=== PATIENT | female | born 1955 | race Caucasian/White ===

== ENCOUNTER 2017-04-04 07:28 | Emergency (ER) | payer BC ==
[2017-04-04] MEDS ORDERED: ONDANSETRON PF 4 MG/2 ML VIAL. ONE (07:39)
[2017-04-04] MEDS ORDERED: ONDANSETRON PF 4 MG/2 ML VIAL. IV ONE (07:45)
--- NOTE | 2017-04-04 07:48 | RAD ---
Clinical indications: Left-sided facial droop and left-sided weakness. Slurred speech. Confusion. Code stroke. Comparison: None available. Technique: Noncontrast axial cross sectional scanning of the head was performed. PQRS Compliance Statement: One or more of the following individualized dose reduction techniques were utilized for this examination: 1. Automated exposure control 2. Adjustment of the mA and/or kV according to patient size 3. Use of iterative reconstruction technique Findings: No acute intracranial hemorrhage or midline shift or mass-effect or hydrocephalus or extra-axial fluid collection is seen. Mild bilateral periventricular white hypodensity is seen consistent with chronic small vessel ischemic disease. 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 No skull fracture or pneumocephalus is seen. No opacification of the mastoid sinuses or the paranasal sinuses is seen. The maxillary sinuses are not completely seen in this study. Impression: No acute intracranial hemorrhage is seen. Chronic ischemic disease. Note-this critical result was called to the emergency room physician Dr. Severiano Borjas at 7:44 AM on April 04, 2017.
--- NOTE | 2017-04-04 07:59 | EKG ---
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
--- NOTE | 2017-04-04 08:06 | PHYS DOC ---
General Chief Complaint: NEURO SYMPTOMS/DEFICITS Stated Complaint: CODE STROKE Time Seen by MD: 07:36 Source: patient Exam Limitations: clinical condition (dizzy/nauseous, vague historian) Problems: History of Present Illness Initial Comments 61 year old female brought to ED via EMS from home for possible code stroke. Patient reports that she wasn't feeling well since about (6pm last known well) last night, feeling dizzy nauseous possibly slurred speech. Reports she awoke this morning about 6 worsening of symptoms, dizzy/nauseous/ weak (possibly weaker more on left vs right). [place] like she had to urinate at home but unable, admits decreased PO yesterday and last BM yesterday (nl). FSBS 122 per EMS. Code stroke arrival straight to CT, initial VS: 58, 23, 218/128, 96% RA On my evaluation patient reports nausea/weakness/dizziness, trying to make herself vomit in basin (coughing up sputum only). She denies headache, chest pain, dyspnea, fever, chills, cough, or recent illness. Ran out of one of her BP meds few days ago (cannot recall name) no prior cardiac history aside from chronic sinus bradycardia (HR runs 40's-50's). Part of medical history obtained from her son who is at bedside. Questionable right sided uvula deviation on [place], otherwise normal ability to swallow solids/liquids. NIHSS no deficits. CT reported to me as no hemorrhage, incidental chronic small vessel disease. Timing/Duration: other (last known well 6pm last night) Severity: moderate Modifying Factors: worse with movement, improves with rest Associated Symptoms: malaise, nausea/vomiting, weakness Allergies: Coded Allergies: No Known Drug Allergies (Unverified , 04/04/17) Past Medical History Medical History: hypertension Surgical History: tonsillectomy Family History Significant Family History: vascular disease (uncle CVA in 50's but was heavy smoker/drinker) Social History Smoker: non-smoker Alcohol: none Drugs: none Review of Systems Constitutional: denies chills, denies diaphoresis, denies fever, malaise, weakness EENTM: denies eye pain, blurred vision (chronic), denies ear pain, denies ear discharge, denies nose pain, denies nose congestion, denies throat pain, denies throat swelling, other (dry mouth) Respiratory: denies cough, denies shortness of breath, denies wheezing Cardiovascular: denies chest pain, denies edema, denies palpitations, denies syncope Gastrointestinal: abdominal pain (suprapubic fullness), denies constipation, nausea, denies vomiting Genitourinary: see HPI, denies discharge, denies dysuria, denies frequency, denies hematuria Musculoskeletal: denies back pain, denies joint swelling, denies neck pain Psychiatric/Neurological: see HPI Hematologic/Lymphatic: denies blood clots, denies easy bleeding, denies easy bruising Physical Exam General Appearance: WD/WN, moderate distress (nauseous) Eyes: bilateral eye normal inspection, bilateral eye PERRL, bilateral eye EOMI Ear, Nose, Throat: hearing grossly normal, normal ENT inspection (membranes very dry, R uvula deviation), normal pharynx Neck: non-tender, supple Respiratory: chest non-tender, normal breath sounds, no respiratory distress Cardiovascular: normal peripheral pulses, bradycardia Gastrointestinal: soft (suprapubic tenderness/palpable bladder, BS normal, nondistended, neg Salcedo/Mcburney) Rectal: deferred Back: no CVA tenderness, no vertebral tenderness Extremities: non-tender, normal inspection 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 PHYSICIAN: AILEEN CHRISTINA DO REASON: LEFT SIDE WEAKNESS PROCEDURE: CT CODE STROKE HEAD WO Clinical indications: Left-sided facial droop and left-sided weakness. Slurred speech. Confusion. Code stroke. Comparison: None available. Technique: Noncontrast axial cross sectional scanning of the head was performed. PQRS Compliance Statement: One or more of the following individualized dose reduction techniques were utilized for this examination: 1. Automated exposure control 2. Adjustment of the mA and/or kV according to patient size 3. Use of iterative reconstruction technique Findings: No acute intracranial hemorrhage or midline shift or mass-effect or hydrocephalus or extra-axial fluid collection is seen. Mild bilateral periventricular white hypodensity is seen consistent with chronic small vessel ischemic disease. 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 No skull fracture or pneumocephalus is seen. No opacification of the mastoid sinuses or the paranasal sinuses is seen. The maxillary sinuses are not completely seen in this study. Impression: No acute intracranial hemorrhage is seen. Chronic ischemic disease. Note-this critical result was called to the emergency room physician Dr. Aileen Christina at 7:44 AM on April 04, 2017. DICTATED AND SIGNED BY: DOMONIQUE GONZALEZ MD DATE: 04/04/17739 CC: AILEEN CHRISTINA DO ~ PATIENT: LISBETH MCKEON ACCOUNT: [id number] : 1955 LOCATION: ER AGE: 61 SEX: F EXAM STATUS: REG ER ORD. PHYSICIAN: AILEEN CHRISTINA DO REASON: cva PROCEDURE: CHEST AP ONLY Portable AP upright view CXR: Clinical indications: Code stroke. CVA. Comparison: July 21, 2008 Findings: No acute lung infiltrate or pleural effusion or pulmonary edema or lung mass or pneumothorax is seen. The heart size, pulmonary vasculature, mediastinum and both claire are unremarkable. Impression: No acute radiographic abnormality is seen. DICTATED AND SIGNED BY: DOMONIQUE GONZALEZ MD DATE: 04/04/17825 CC: PCP,UNKNOWN; AILEEN CHRISTINA DO ~ Pertinent labs: troponin I 0.156, d-dimer 2.14, BUN 15, Cr 1, ESR 32 4mg zofran IV, 10mg compazine IV with good nausea control. ASA 324mg PO given after CT neg for bleed and troponin elevated although patient has no chest pain. Clonidine PO initially and now NTG drip for BP control. 0933: BP 196/106 on NTG drip 7mcs/min, feeling much better now resting comfortably, improved color, dizzy only with eye opening. Nonpositional left vertical nystagmus now noted, otherwise neuro with no new or progressive deficits. Still no CP/SOB/TAYLOR/abdominal pain. Due to acute urinary retention Urology consultation (in addition to possible Cardiology/Neurology) indicated and transfer to [facility] for further evaluation/treatment indicated. IMPRESSIONS: Hypertensive Crisis Nonpositional vertical nystagmus/dizziness Elevated Troponin I (likely demand) Elevated d-dimer Acute urinary retension Chronic sinus bradycardia Departure Time of Disposition: 09:03 Disposition: 02 XFER SHT-TRM HOSP Condition: STABLE Additional Instructions: EMS transfer to [facility] for ICU admission Dr Montes is accepting. AILEEN CHRISTINA DO Apr 04, 2017 08:06
[2017-04-04] MEDS ORDERED: cloNIDine HCL 0.1 MG TABLET PO ONE (08:15)
[2017-04-04 08:20] LABS: BASO % 1 % (0-3); EOS # 0.1 x10^3/uL (0.0-0.7); EOS % 2 % (0-3); HEMATOCRIT 42.9 % (36.0-47.0); HEMOGLOBIN 14.5 g/dL (12.0-15.5); LYMPH # 1.7 x10^3/uL (1.0-4.8); LYMPH % 30 % (24-48); MEAN CORPUSCULAR HEMOGLOBIN 30 pg (25-35); MEAN CORPUSCULAR HGB CONC 34 g/dL (31-37); MEAN CORPUSCULAR VOLUME 89 fL (79-100); MONO # 0.4 x10^3/uL (0.0-1.1); MONO % 7 % (0-9); NEUT # 3.5 x10^3uL (1.8-7.7); NEUT % 60 % (31-73); PLATELET COUNT 253 x10^3/uL (140-400); RED BLOOD COUNT 4.82 x10^6/uL (3.50-5.40); RED CELL DISTRIBUTION WIDTH 14.1 % (11.5-14.5); WHITE BLOOD COUNT 5.8 x10^3/uL (4.0-11.0)
[2017-04-04 08:29] LABS: ALBUMIN 3.7 g/dL (3.4-5.0); ALBUMIN/GLOBULIN RATIO 0.9 (1.0-1.7); CALCIUM 9.3 mg/dL (8.5-10.1); GFR 56.4; POTASSIUM 3.6 mmol/L (3.5-5.1); TOTAL BILIRUBIN 0.3 mg/dL (0.2-1.0); TOTAL PROTEIN 7.9 g/dL (6.4-8.2)
--- NOTE | 2017-04-04 08:29 | RAD ---
Portable AP upright view CXR: Clinical indications: Code stroke. CVA. Comparison: July 21, 2008 Findings: No acute lung infiltrate or pleural effusion or pulmonary edema or lung mass or pneumothorax is seen. The heart size, pulmonary vasculature, mediastinum and both claire are unremarkable. Impression: No acute radiographic abnormality is seen.
[2017-04-04] MEDS: NITROGLYCERIN PREMIX 250 ML IV ONE (08:47)
[2017-04-04] MEDS ORDERED: ASPIRIN 81 MG TAB.CHEW PO ONE (09:00)
[2017-04-04] MEDS ORDERED: PROCHLORPERAZINE 10 MG/2 ML VIAL. IV ONE (09:00)
[2017-04-04] MEDS ORDERED: IV NORMAL SALINE 1,000ML 1,000 ML IV SCH (09:17)
[2017-04-04 09:38] LABS: BACTERIA,URINE FEW /HPF (0-FEW); BILIRUBIN,URINE NEG (NEG); CLARITY,URINE HAZY; COLOR,URINE YELLOW; GLUCOSE,URINE NEG (NEG); NITRITE,URINE NEG (NEG); SQUAMOUS EPITHELIAL CELL,UR OCC /LPF; UROBILINOGEN,URINE 0.2 mg/dL (0.2 mg/dL); WBC,URINE RARE /HPF (0-4)
[2017-04-04 09:44] LABS: AMPHETAMINE/METHAMPHETAMINE NEG (NEG); BARBITURATES NEG (NEG); BENZODIAZEPINES NEG (NEG); CANNABINOIDS NEG (NEG); COCAINE NEG (NEG); METHADONE NEG (NEG); OPIATES NEG (NEG); PHENCYCLIDINE NEG (NEG)
[2017-04-04 11:27] VITALS: BP 201/88
== END 2017-04-04 11:52 | disposition short-term general hospital (02) ==
LOC: ER 07:28
DX: I16.9 Hypertensive crisis, unspecified (principal); R33.9 Retention of urine, unspecified; R00.1 Bradycardia, unspecified; R79.89 Other specified abnormal findings of blood chemistry; R79.1 Abnormal coagulation profile; H55.09 Other forms of nystagmus; I10 Essential (primary) hypertension
CPT/HCPCS: 36415; 51702; 70450; 71045; 80053; 80307; 81001; 82550; 83605; 83880; 84484; 85025; 85379; 85610; 85651; 85730; 87040; 93005; 96361; 96365; 96366; 96375; 99285; J0780; J2405; J3490; G0479; J7030

== ENCOUNTER → 2021-06-19 | Outpatient (CLI) | payer MEDICARE, BC ==
[~2021-06-19] MED LIST: IOHEXOL 240 MG/ML 50ML VIAL. ONE; IOHEXOL 240 MG/ML 50ML VIAL. PO ONE; IOHEXOL 300 MG/ML 75 ML VIAL. IV ONE
[2021-06-19 09:09] LABS: CALCIUM 9.9 mg/dL (8.5-10.1); CREATININE 1.2 mg/dL (0.6-1.0); GFR 45.1
--- NOTE | 2021-06-19 10:26 | RAD ---
CT scan of the abdomen and pelvis with oral contrast only 06/19/2021 CLINICAL HISTORY: Right lower quadrant abdominal pain. TECHNIQUE: After the oral administration of contrast only, contiguous, 0.625 mm axial sections were o btained through the abdomen and pelvis. 3 mm reconstructed axial, sagittal and coronal images were ob tained. One or more of the following individualized dose reduction techniques were utilized for this study: 1. Automated exposure control. 2. Adjustment of the mA and/or kV according to patient size. 3. Use of iterative reconstruction technique. FINDINGS: Images through the lung bases demonstrate mild cardiomegaly. Minimal dependent subsegmental atelectasis is seen bilaterally. The liver, spleen, pancreas, adrenal glands and kidneys are within normal limits. Atherosclerotic calcification of the abdominal aorta and its branches is noted. The gallbladder is co ntracted. No free fluid or free air is seen within the abdomen. There is no evidence of bowel obstruc tion. Wall thickening of the terminal ileum is seen. Twisting of the mesentery posterior to the terminal il eum is seen within the right lower quadrant abdomen which may reflect an internal hernia. There is no definite evidence of bowel obstruction. The right external iliac artery is markedly tortuous and cou rses posterior to the appendix extending laterally. The appendix is partially visualized. It is promi nent measuring 1 cm in diameter with faint increased attenuation seen in the adjacent fat. These find ings are concerning for acute appendicitis. No abnormal fluid collection is seen to suggest evidence of an abscess. Images through the pelvis demonstrate the urinary bladder to be contracted. Calcifications are seen w ithin the pelvis consistent with phleboliths. Scattered diverticula are seen involving the sigmoid co taylor. No inflammatory changes are seen in the adjacent fat. Fat-containing masses are seen within both ovaries consistent with dermoid cysts. The right dermoid cyst measures 7.0 x 6.7 x 6.5 cm transverse , craniocaudal and AP dimensions. The left dermoid cyst measures 6.4 x 4.6 x 4.5 cm in size. No free fluid is seen. Very mild S-shaped curvature of the thoracolumbar spine is noted. Degenerative changes are seen invol ving the lower thoracic and throughout the lumbar spine along with both hips. IMPRESSION: 1. Findings are seen which may reflect an internal hernia involving the terminal ileum near the cecum . There is no evidence of bowel obstruction. 2. The right external iliac artery takes a markedly tortuous course extending immediately posterior t o the appendix. 3. The appendix is prominent with faint increased attenuation seen within the adjacent fat. These fin dings are concerning for acute appendicitis. No abnormal fluid collection is seen to suggest evidence of an abscess. 4. Bilateral dermoid cysts, right greater than left. The CT findings concerning for acute appendicitis were discussed with Josi Barnhart's nurse. Electronically signed by: Ryan Le MD (06/19/2021 10:23 AM) [id number]
== END ==
LOC: CT 08:17
PROVIDERS: ATTEND Nurse Practitioner
DX: K82.0 Obstruction of gallbladder (principal); I51.7 Cardiomegaly; J98.11 Atelectasis; I70.0 Atherosclerosis of aorta; D36.7 Benign neoplasm of other specified sites; M47.814 Spondylosis without myelopathy or radiculopathy, thoracic region; M43.8X5 Other specified deforming dorsopathies, thoracolumbar region; M16.0 Bilateral primary osteoarthritis of hip
CPT/HCPCS: 36415; 74176; 80048; Q9966